=== PATIENT | female | born 1970 | race American Indian/Alaskan Native ===

== ENCOUNTER 2018-06-05 15:10 | Emergency (ER) | payer MEDICAID, OTHER ==
--- NOTE | 2018-06-05 15:54 | Emergency Department Report ---
Chief Complaint: Vaginal Bleeding Stated Complaint: BLEEDING/CRAMPS/PAIN Time Seen by Provider: 06/05/18 15:49 - HPI History of Present Illness: Pt c/o lower abdominal pain, heavy vaginal bleeding x2 weeks she states the bleeding has significantly increased, having to change pad every hour no fever, no urinary sx Pt has a hx of uterine fibroids, pt states they are wanting to do a hysterectomy she is just awaiting approval MSE screening note: Focused history and physical exam performed. Due to findings the following was ordered: UA, CBC, BMP, pelvic US ED Disposition for MSE Condition: Stable
[2018-06-05] MEDS ORDERED: IBUPROFEN ONE (15:56)
[2018-06-05] MEDS ORDERED: IBUPROFEN PO ONE (15:57)
[2018-06-05 16:36] LABS: Basophils # (Auto) 0.1 K/mm3 (0.0-0.1); Basophils % (Auto) 0.9 % (0.0-1.8); Eosinophils # (Auto) 0.1 K/mm3 (0.0-0.4); Eosinophils % (Auto) 1.2 % (0.0-4.3); Hematocrit 38.2 % (30.3-42.9); Hemoglobin 12.6 gm/dl (10.1-14.3); Lymphocytes # (Auto) 2.8 K/mm3 (1.2-5.4); Lymphocytes % (Auto) 30.7 % (13.4-35.0); Mean Corpuscular HGB Conc 33 % (30-34); Mean Corpuscular Volume 85 fl (79-97); Monocytes # (Auto) 0.4 K/mm3 (0.0-0.8); Monocytes % (Auto) 4.7 % (0.0-7.3); Platelet Count 327 K/mm3 (140-440); Red Blood Count 4.51 M/mm3 (3.65-5.03); Red Cell Distribution Width 16.8 % (13.2-15.2)
[2018-06-05 16:48] LABS: BUN/Creatinine Ratio 13; Blood Urea Nitrogen 8 mg/dL (7-17); Calcium 8.9 mg/dL (8.4-10.2); Hemolysis Index 13
[2018-06-05 17:36] LABS: Bilirubin,Urine NEG (Negative); Blood,Urine MOD (Negative); Color,Urine Yellow (Yellow); Mucus,Urine FEW /HPF; Protein,Urine <15 mg/dL mg/dL (Negative)
[2018-06-05 17:47] LABS: HCG Qualitative,Urine Negative (Negative)
--- NOTE | 2018-06-05 18:45 | Emergency Department Report ---
ED Abdominal Pain HPI - General Chief Complaint: Vaginal Bleeding Stated Complaint: BLEEDING/CRAMPS/PAIN Time Seen by Provider: 06/05/18 15:49 Source: patient Mode of arrival: Ambulatory Limitations: No Limitations - History of Present Illness Initial Comments: Patient is a 47-year-old -[place] female who comes to the ER today after calling her TESTING SPECIALIST's office. She states that the office, Dr. Castro, sent her to the ER due to her bleeding fibroids. She has a past medical history of fibroids and they do bleed from time to time. Past medical history None Past surgical history Denies Home medicatioN none -: Gradual, week(s) Severity scale (0 -10): 10 Associated Symptoms: denies other symptoms - Related Data Home Medications Medication Instructions Recorded Confirmed Last Taken No Known Home Medications [No 12/21/12 12/21/12 Unknown Reported Home Medications] Allergies Allergy/AdvReac Type Severity Reaction Status Date / Time azithromycin [From Zithromax] Allergy HIVES,RASH Verified 12/21/12 12:02 THOART SWELLS codeine Allergy hives rash Verified 12/21/12 12:02 thoart swells Penicillins Allergy HIVES Verified 12/21/12 12:02 ,RASH,THROAT SWELLS ED Review of Systems ROS: Stated complaint: BLEEDING/CRAMPS/PAIN Other details as noted in HPI Comment: All other systems reviewed and negative Constitutional: denies: chills Eyes: denies: eye pain ENT: denies: throat pain Respiratory: denies: cough Cardiovascular: denies: palpitations Endocrine: denies: excessive sweating Gastrointestinal: denies: nausea Genitourinary: as per HPI, abnormal menses Musculoskeletal: denies: back pain Skin: denies: rash Neurological: denies: headache Psychiatric: denies: anxiety Hematological/Lymphatic: denies: easy bleeding ED Past Medical Hx - Past Medical History Hx Asthma: Yes (inhaler prn last used 1 year ago) Additional medical history: fibroids - Surgical History Additional Surgical History: partial thyroidectomy,sinus - Social History Smoking Status: Never Smoker Substance Use Type: None - Medications Home Medications: Home Medications Medication Instructions Recorded Confirmed Last Taken Type No Known Home Medications [No 12/21/12 12/21/12 Unknown History Reported Home Medications] ED Physical Exam - General Limitations: No Limitations General appearance: alert - Head Head exam: Present: atraumatic - Eye Eye exam: Present: normal appearance, PERRL - ENT ENT exam: Present: normal exam - Neck Neck exam: Present: normal inspection - Respiratory Respiratory exam: Present: normal lung sounds bilaterally - Cardiovascular Cardiovascular Exam: Present: regular rate - GI/Abdominal GI/Abdominal exam: Present: soft, normal bowel sounds - Rectal Rectal exam: Present: deferred - Extremities Exam Extremities exam: Present: normal inspection, full ROM - Back Exam Back exam: Present: normal inspection, full ROM - Neurological Exam Neurological exam: Present: alert, oriented X3 - Psychiatric Psychiatric exam: Present: normal affect, normal mood - Skin Skin exam: Present: warm, dry, intact ED Course Vital Signs 06/05/18 06/05/18 15:50 16:25 Temperature 98.2 F Pulse Rate 64 Respiratory 18 18 Rate Blood Pressure 126/74 O2 Sat by Pulse 100 Oximetry ED Medical Decision Making - Lab Data Result diagrams: 06/05/18 16:07 06/05/18 16:07 - Medical Decision Making Lab Results 06/05/18 06/05/18 06/05/18 Range/Units 16:07 16:07 16:43 WBC 9.2 (4.5-11.0) K/mm3 RBC 4.51 (3.65-5.03) M/mm3 Hgb 12.6 (10.1-14.3) gm/dl Hct 38.2 (30.3-42.9) % MCV 85 (79-97) fl MCH 28 (28-32) pg MCHC 33 (30-34) % RDW 16.8 H (13.2-15.2) % Plt Count 327 (140-440) K/mm3 Lymph % (Auto) 30.7 (13.4-35.0) % Ada % (Auto) 4.7 (0.0-7.3) % Eos % (Auto) 1.2 (0.0-4.3) % Baso % (Auto) 0.9 (0.0-1.8) % Lymph # 2.8 (1.2-5.4) K/mm3 Ada # 0.4 (0.0-0.8) K/mm3 Eos # 0.1 (0.0-0.4) K/mm3 Baso # 0.1 (0.0-0.1) K/mm3 Seg Neutrophils % 62.5 (40.0-70.0) % Seg Neutrophils # 5.8 (1.8-7.7) K/mm3 Sodium 139 (137-145) mmol/L Potassium 3.9 (3.6-5.0) mmol/L Chloride 103.8 (98-107) mmol/L Carbon Dioxide 26 (22-30) mmol/L Anion Gap 13 mmol/L BUN 8 (7-17) mg/dL Creatinine 0.6 L (0.7-1.2) mg/dL Estimated GFR > 60 ml/min BUN/Creatinine Ratio 13 % Glucose 125 H (65-100) mg/dL Calcium 8.9 (8.4-10.2) mg/dL Urine Color Yellow (Yellow) Urine Turbidity Clear (Clear) Urine pH 5.0 (5.0-7.0) Ur Specific [place] 1.019 (1.003-1.030) Urine Protein <15 mg/dl (Negative) mg/dL Urine Glucose (UA) Neg (Negative) mg/dL Urine Ketones Neg (Negative) mg/dL Urine Blood Mod (Negative) Urine Nitrite Neg (Negative) Urine Bilirubin Neg (Negative) Urine Urobilinogen 2.0 (<2.0) mg/dL Ur Leukocyte Esterase Neg (Negative) Urine WBC (Auto) 1.0 (0.0-6.0) /HPF Urine RBC (Auto) 94.0 (0.0-6.0) /HPF U Epithel Cells (Auto) < 1.0 (0-13.0) /HPF Urine Mucus Few /HPF Urine HCG, Qual Negative (Negative) Vital Signs 06/05/18 06/05/18 15:50 16:25 Temperature 98.2 F Pulse Rate 64 Respiratory 18 18 Rate Blood Pressure 126/74 O2 Sat by Pulse 100 Oximetry SEE DC VS PT was informed that her blood counts were normal. She has known fibroids. She is established with Dr. Castro. Patient has been referred back to Dr. Castro to schedule her hysterectomy. I think the patient was of the impression she would be admitted emergently tonight for hysterectomy. BUT Her blood counts are normal she has no chest pain or shortness of breath. No tachycardia. no hypotension. Critical care attestation.: If time is entered above; I have spent that time in minutes in the direct care of this critically ill patient, excluding procedure time. ED Disposition Clinical Impression: Vaginal bleeding, History of uterine fibroid Disposition: TO HOME OR SELFCARE Is pt being admited?: No Does the pt Need Aspirin: No Condition: Stable Instructions: Uterine Fibroids (ED) Additional Instructions: FOLLOW UP WITH OBGYN LET THEM KNOW YOU WERE HERE AND THAT YOUR BLOOD COUNTS AND VS ARE NORMAL HYDRATE WELL WITH WATER CONTINUE DAILY VITAMIN ACTIVITY TOLERATED PELVIC REST MOTRIN OR TYLENOL FOR PAIN Referrals: CARL HATCH MD [Primary Care Provider] - 3-5 Days Time of Disposition: 18:42
[2018-06-05 19:00] VITALS: BP 125/73
== END 2018-06-05 19:11 | disposition home or self-care (01) ==
LOC: ED 15:10
DX: N93.9 Abnormal uterine and vaginal bleeding, unspecified (principal); J45.909 Unspecified asthma, uncomplicated
CPT/HCPCS: 36415; 80048; 81001; 81025; 85025